=== PATIENT | female | born 1990 | race Caucasian/White ===

== ENCOUNTER 2021-06-12 11:23 | Day surgery (SDC) | payer OTHER ==
[2021-06-12] MEDS ORDERED: Sodium Chloride 0.9% 10 ML Syringe FLUSH PRN (11:28)
[2021-06-12] MEDS ORDERED: fentaNYL 100 MCG/2 ML SDV IVPUSH ONE ×2 (11:29→11:58)
[2021-06-12] MEDS ORDERED: Ondansetron 4 MG/2 ML SDV IVPUSH ONE (11:29)
--- NOTE | 2021-06-12 11:59 | CR ---
Wrist Comp Min 3V Rt CLINICAL HISTORY: Displaced fracture FINDINGS: There is a comminuted displaced fracture of the distal radius and distal ulna. There is also dislocation of the distal ulna abutting the mid carpal junctions. Impression: Comminuted displaced fracture distal radius and fracture of the distal ulna with ulnar abutment
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
[2021-06-12] MEDS ORDERED: Bupivacaine 0.5% 30 ML SDV ONE (12:39)
[2021-06-12] MEDS ORDERED: fentaNYL 100 MCG/2 ML SDV ONE ×4 (12:43→16:42)
[2021-06-12] MEDS ORDERED: Propofol 200 MG/20 ML SDV ONE (12:43)
[2021-06-12] MEDS ORDERED: Midazolam 1 MG/ML 2 ML SDV ONE (12:43)
[2021-06-12] MEDS ORDERED: HYDROmorphone 1 MG/ML Syringe IVPUSH ONE (12:50)
--- NOTE | 2021-06-12 14:13 | CR ---
Elbow one view Rt CLINICAL HISTORY: Pain, trauma FINDINGS: No acute fracture or dislocation is noted. The fat pads are in normal position . Impression: Limited study No fracture or dislocation seen in the elbow region. Patient has known fracture of the distal radius
[2021-06-12] MEDS ORDERED: HYDROmorphone 0.5 MG/0.5 ML Syringe IVPUSH ONE (14:16)
[2021-06-12] MEDS ORDERED: Ondansetron 4 MG/2 ML SDV ONE (14:34)
[2021-06-12] MEDS ORDERED: Dexamethasone 4 MG/ML SDV ONE (14:34)
[2021-06-12] MEDS ORDERED: ceFAZolin 1 GM Vial ONE (14:44)
[2021-06-12] MEDS ORDERED: Sodium Chloride 0.9% 10 ML ONE (14:44)
[2021-06-12] MEDS ORDERED: Lactated Ringers 1,000 ML ONE ×2 (16:37→16:38)
[2021-06-12] MEDS ORDERED: Ketorolac 30 MG/ML SDV ONE (16:58)
[2021-06-12] MEDS ORDERED: Acetaminophen/oxyCODONE 325-5 MG Tab PO PRN (18:07)
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
== END 2021-06-12 20:25 | disposition home or self-care (01) ==
LOC: JP.ED 11:23 → JP.SDS 13:08
PROVIDERS: ATTEND Specialist
DX: S52.301A Unspecified fracture of shaft of right radius, initial encounter for closed fracture (principal); S52.601A Unspecified fracture of lower end of right ulna, initial encounter for closed fracture; J45.909 Unspecified asthma, uncomplicated; Z88.8 Allergy status to other drugs, medicaments and biological substances; Z98.890 Other specified postprocedural states; V86.99XA Unspecified occupant of other special all-terrain or other off-road motor vehicle injured in nontraffic accident, initial encounter
CPT/HCPCS: 25515; 25651; 36415; 73070; 73110; 76000; 80048; 84703; 85025; 96374; 96375; 96376; 99285; A9270; C1713; C1776; J0690; J1100; J1170; J1885; J2250; J2405; J2704; J3010; J3490; J7120